=== PATIENT | male | born 1955 | race Caucasian/White ===

== ENCOUNTER → 2018-01-16 | Day surgery (SDC) | payer BC, MEDICAID ==
[~2018-01-16] MED LIST: Lactated Ringers 1,000 ML IV SCH; Midazolam 1 MG/ML 2 ML SDV ONE; Propofol 200 MG/20 ML SDV ONE; fentaNYL 100 MCG/2 ML SDV ONE
--- NOTE | 2018-01-16 09:55 | OR ---
DATE OF PROCEDURE: 01/16/2018 PREOPERATIVE DIAGNOSES: 1. Blood in the stool. 2. History of adenomatous polyps, father and brother with colon cancer. POSTOPERATIVE DIAGNOSES: 1. Small transverse colon polyp. No blood seen anywhere, blood in stool. 2. History of adenomatous polyp, strong family history of colon cancer in father and brother. PROCEDURE: Colonoscopy to the cecum with biopsy and resection of small transverse colon polyp. ANESTHESIA: IV anesthesia with monitored anesthesia care. INDICATION: This 62-year-old white male is referred for a colonoscopy. He has a history of adenomatous polyps though he says his last colonoscopic exam was done two and a half years ago. He has some blood in the stool. He has a strong family history of colon cancer in that both his father and brother had colon cancer. He has been on Plavix. He stopped the Plavix and aspirin a week ago in preparation for this procedure. I counseled him for a colonoscopy with possible biopsy and/or polypectomy including risks and alternatives, and he gave his informed consent to proceed. DESCRIPTION OF PROCEDURE: The patient was placed in the left lateral decubitus position. IV anesthesia was administered by the Anesthesia Service. Time-out was held. A rectal exam was performed, which was unremarkable. The flexible video Olympus colonoscope was introduced through his anus, up his rectum, out his colon all way to the cecum. En route, in the transverse colon, we saw a small polyp, which was removed with the biopsy forceps. Once the cecum was reached, the scope was slowly withdrawn, examining the mucosa throughout. No additional mucosal abnormalities were noted. The scope was retroflexed in the rectum with the distal rectum appearing unremarkable. The scope was straightened and removed. He tolerated the procedure well. Justin Fuentes MD /[id number]
[2018-01-16 09:56] VITALS: BP 106/61
== END ==
LOC: JP.SDS 06:39
PROVIDERS: ATTEND Surgery
DX: K92.1 Melena (principal); K63.5 Polyp of colon; I25.10 Atherosclerotic heart disease of native coronary artery without angina pectoris; I25.2 Old myocardial infarction; E78.5 Hyperlipidemia, unspecified; R56.9 Unspecified convulsions; Z79.02 Long term (current) use of antithrombotics/antiplatelets; Z86.010 Personal history of colon polyps; Z80.0 Family history of malignant neoplasm of digestive organs
CPT/HCPCS: 45380; 88305; J2250; J2704; J3010; J7120

== ENCOUNTER 2019-05-30 08:51 | Day surgery (SDC) | payer MEDICARE, BC ==
[2019-05-30] MEDS ORDERED: Midazolam 1 MG/ML 2 ML SDV ONE (08:59)
[2019-05-30] MEDS ORDERED: Propofol 200 MG/20 ML SDV ONE (08:59)
[2019-05-30] MEDS ORDERED: fentaNYL 100 MCG/2 ML SDV ONE (08:59)
[2019-05-30] MEDS ORDERED: Lactated Ringers 1,000 ML IV SCH (09:45)
[2019-05-30] MEDS ORDERED: Ampicillin 2 GM in Sodium Chloride 0.9% 100 ML IV ONE (10:45)
[2019-05-30 13:11] VITALS: BP 109/59
--- NOTE | 2019-05-30 15:37 | OR ---
DATE OF PROCEDURE: 05/30/2019 PREOPERATIVE DIAGNOSIS: Blood in stool, strong family history of colon cancer. POSTOPERATIVE DIAGNOSES: Diverticulosis, blood in stool, etiology unknown; strong family history of colon cancer. PROCEDURE: Colonoscopy to the cecum. SURGEON: Justin Fuentes MD ANESTHESIA: IV anesthesia with monitored anesthesia care. INDICATION: This 63-year-old white male is referred for a colonoscopy because of blood in his stool. He has a strong family history of colon cancer. A brother and father had colon cancer. Other siblings have had polyps. He has a history of adenomatous polyps. His last colonoscopic exam was about a year and a half ago. I counseled him for a colonoscopy with possible biopsy and/or polypectomy, including risks and alternatives, and he gave his informed consent to proceed. DESCRIPTION OF PROCEDURE: The patient was placed in the left lateral decubitus position. IV anesthesia was administered by the Anesthesia Service. Time-out was held. A rectal exam was performed, which was unremarkable. The flexible video Olympus colonoscope was introduced through his anus, up his rectum and out his colon, all the way to the cecum. We saw very rare diverticula in the left side. No bleeding or inflammation associated with them. Once the cecum was reached, the scope was slowly withdrawn examining the mucosa throughout. No additional mucosal abnormalities were noted. No neoplastic lesions were seen. The scope was retroflexed in the rectum with the distal rectum showing some minor hemorrhoidal tissue, otherwise unremarkable. The scope was straightened and removed. He tolerated the procedure well. Justin Fuentes MD /[id number]
== END 2019-05-30 13:25 | disposition home or self-care (01) ==
LOC: JP.SDS 08:51
PROVIDERS: ATTEND Surgery
DX: K57.31 Diverticulosis of large intestine without perforation or abscess with bleeding (principal); K64.9 Unspecified hemorrhoids; I25.10 Atherosclerotic heart disease of native coronary artery without angina pectoris; E78.00 Pure hypercholesterolemia, unspecified; Z95.5 Presence of coronary angioplasty implant and graft; Z86.010 Personal history of colon polyps; Z80.0 Family history of malignant neoplasm of digestive organs; Z83.71 Family history of colonic polyps
CPT/HCPCS: J0290; J2250; J2704; J3010; J7030; J7120

== ENCOUNTER 2021-05-07 06:27 | Day surgery (SDC) | payer MEDICARE, BC ==
[2021-05-07] MEDS ORDERED: Sodium Chloride 0.9% 1,000 ML IV SCH (07:00)
[2021-05-07] MEDS ORDERED: Propofol 200 MG/20 ML SDV ONE (07:39)
[2021-05-07] MEDS ORDERED: fentaNYL 100 MCG/2 ML SDV ONE (07:39)
[2021-05-07] MEDS ORDERED: Midazolam 1 MG/ML 2 ML SDV ONE (07:39)
[2021-05-07 10:30] VITALS: BP 115/78; PULSE 55
--- NOTE | 2021-05-08 09:06 | OR ---
DATE OF PROCEDURE: 05/07/2021 SURGEON: John Cha MD PROCEDURE: Colonoscopy with hemorrhoid banding. PREOPERATIVE DIAGNOSIS: Gastrointestinal bleeding, family history of colorectal cancer. POSTOPERATIVE DIAGNOSIS: Gastrointestinal bleeding, family history of colorectal cancer. COMPLICATION: None. 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 ANESTHESIA: MAC. RISKS: Risks, benefits, alternatives, and limitations including, but not limited to infection, bleeding, perforation, false positives, false negatives were explained to the patient who wished to proceed. PROCEDURE IN DETAIL: The patient was placed in left lateral decubitus position. Digital rectal exam was performed without abnormality. Scope was introduced and advanced atraumatically to the ileocecal valve. Scope was brought back to the ascending, transverse, descending colon, and retroflexed. No masses, no diverticulosis. The patient had a very prominent internal hemorrhoid, and discussion with the patient preoperatively this is the bleeding source, which is a high probability, this was subsequently banded without difficulty. The prep was acceptable, approximately 90% luminal surface could be seen. Greater than 8 minutes was spent removing the scope. The patient tolerated procedure well. John Cha MD /[id number]
== END 2021-05-07 10:20 | disposition home or self-care (01) ==
LOC: JP.SDS 06:27
PROVIDERS: ATTEND Surgery
DX: K64.8 Other hemorrhoids (principal); I25.10 Atherosclerotic heart disease of native coronary artery without angina pectoris; I10 Essential (primary) hypertension; Z80.0 Family history of malignant neoplasm of digestive organs
CPT/HCPCS: J2250; J2704; J3010; J7030